=== PATIENT | female | born 1945 | race Caucasian/White ===

== ENCOUNTER 2019-05-28 12:17 | Day surgery (SDC) | payer MEDICARE, OTHER ==
[~2019-05-28] VITALS: Ht 160 cm; Wt 171.0 kg
[~2019-05-28 12:17] MED LIST: ATOR20 PO; Aspirin EC81 MG PO; KRILL OIL500 MG PO; Norvasc10 MG PO; OMEPRAZOLE20 MG PO; VITAMIN D-32000 UNIT PO
[2019-05-28] MEDS ORDERED: Lisinopril2.5 MG PO (12:43)
== END 2019-05-28 14:30 | disposition home or self-care (01) ==
LOC: ORSCSDS 12:17
PROVIDERS: Internal Medicine Gastroenterology
PROC: 0DBP8ZX Excision of Rectum, Via Natural or Artificial Opening Endoscopic, Diagnostic (ICD-10-PCS; principal; 2019-05-28 13:30)
PROC: 0DBN8ZX Excision of Sigmoid Colon, Via Natural or Artificial Opening Endoscopic, Diagnostic (ICD-10-PCS; principal; 2019-05-28 13:30)
PROC: 0DBM8ZX Excision of Descending Colon, Via Natural or Artificial Opening Endoscopic, Diagnostic (ICD-10-PCS; principal; 2019-05-28 13:30)
DX: Z12.11 Encounter for screening for malignant neoplasm of colon (principal); Z86.010 Personal history of colon polyps; D12.4 Benign neoplasm of descending colon; K63.5 Polyp of colon; K62.1 Rectal polyp; K57.30 Diverticulosis of large intestine without perforation or abscess without bleeding; I10 Essential (primary) hypertension; Z79.899 Other long term (current) drug therapy
CPT/HCPCS: 88305; J2704; J7120